=== PATIENT | male | born 1995 | race African-American/Black ===

== ENCOUNTER 2019-05-04 06:16 | Emergency (ER) | payer SELFPAY ==
[~2019-05-04] VITALS: Ht 172.7 cm; Wt 57.6 kg
--- OUTSIDE RECORDS SUMMARY | 2019-05-04 06:20 | XMS REPORT ---
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 Allergies, Adverse Reactions, Alerts This patient has no known allergies or adverse reactions. Medications This patient has no known medications.
--- NOTE | 2019-05-04 07:07 | Diagnostic Imaging Report ---
EXAMINATION: Chest PA and lateral views INDICATION: Chest discomfort. ^[id number] COMPARISON: None FINDINGS: TUBES and LINES: None. LUNGS: Lungs are well inflated. Mild perihilar, peribronchial thickening and perihilar streaky densities may reflect viral infection versus reactive airway disease. There is no evidence of pneumonia or pulmonary edema. Mild left basilar pleural parenchymal scarring. PLEURA: No pleural effusion or pneumothorax. HEART AND MEDIASTINUM: The cardiomediastinal silhouette is unremarkable. BONES AND SOFT TISSUES: No acute osseous lesion. UPPER ABDOMEN: No free air under the diaphragm. IMPRESSION: No acute thoracic abnormality. Signed by: Dr. Hossein Peterson M.D. on 05/04/2019 7:04 AM
[2019-05-04 07:33] VITALS: BP 120/65
== END 2019-05-04 07:49 | disposition home or self-care (01) ==
LOC: FSED 06:16
DX: R07.89 Other chest pain (principal); K20.8 Other esophagitis
CPT/HCPCS: 71046; 99283

== ENCOUNTER 2020-12-22 19:29 | Emergency (ER) | payer SELFPAY ==
[~2020-12-22] VITALS: Ht 172.7 cm; Wt 65.8 kg
[2020-12-22] MEDS ORDERED: KETOROLAC TROMETHAMINE 30 MG/ML VIAL IM ONE (19:56)
[2020-12-22] MEDS ORDERED: KETOROLAC TROMETHAMINE 30 MG/ML VIAL ONE (20:12)
[2020-12-22 20:17] VITALS: BP 139/75
== END 2020-12-22 20:18 | disposition home or self-care (01) ==
LOC: FSED 19:54
DX: G44.209 Tension-type headache, unspecified, not intractable (principal)
CPT/HCPCS: 99282; J1885